=== PATIENT | male | born 1940 | race Caucasian/White ===

== ENCOUNTER → 2021-04-14 | Outpatient (CLI) | payer OTHER | END | disposition home or self-care (01) | LOC: SHCH 13:22 | PROVIDERS: ATTEND Internal Medicine | DX: R01.1 Cardiac murmur, unspecified (principal) | CPT/HCPCS: 93306; 93356 ==

== ENCOUNTER 2021-05-05 05:38 | Inpatient (IN) | payer OTHER ==
[2021-05-04 12:32] LABS: APPEARANCE,URINE Clear (CLEAR); BILIRUBIN,URINE Negative (NEGATIVE); GLUCOSE, URINE (UA) Negative (NEGATIVE); KETONES,URINE Trace mg/dL (NEGATIVE); LEUKOCYTE ESTERASE ,URINE Negative (NEGATIVE); NITRATE,URINE Negative (NEGATIVE); OCCULT BLOOD,URINE Negative (NEGATIVE); PROTEIN,URINE Negative (NEGATIVE)
[2021-05-04 12:38] LABS: COLOR,URINE YELLOW (YELLOW)
[2021-05-04 12:43] LABS: BASOPHILS % (AUTO) 0.9 % (0.0-5.0); EOSINOPHILS % (AUTO) 4.6 % (0.0-8.0); HEMATOCRIT 38.7 % (42-54); LYMPHOCYTES % (AUTO) 22.1 % (21.0-51.0); MEAN CORPUSCULAR HEMOGLOBIN 32.5 pg (27.0-33.0); MEAN CORPUSCULAR HGB CONC 35.9 g/dL (32.0-36.0); MEAN CORPUSCULAR VOLUME 90.4 fL (79-99); MONOCYTES % (AUTO) 9.4 % (3.0-13.0); NEUTROPHILS % (AUTO) 62.5 % (40.0-77.0); PLATELET COUNT (AUTO) 177 K/uL (130-400); RED BLOOD CELL COUNT(AUTO) 4.28 MIL/uL (4.50-6.20); RED CELL DISTRIBUTION WIDTH 11.9 % (11.0-15.5); WHITE BLOOD COUNT (AUTO) 8.2 K/uL (4.8-10.8)
[2021-05-04 12:52] LABS: CREATININE 1.2 mg/dL (0.5-1.5); POTASSIUM 4.3 mmol/L (3.5-5.1)
[2021-05-04 12:53] LABS: INR 1.03 (0.85-1.15); PROTHROMBIN TIME 11.2 SEC (9.6-11.6)
[2021-05-04 12:55] LABS: PARTIAL THROMBOPLASTIN TIME 27.6 SEC (26.3-35.5)
[2021-05-04 13:59] VITALS: BP 144/77
[~2021-05-05] VITALS: Ht 177.8 cm; Wt 80.4 kg
[2021-05-05] VITALS (13 sets, daily range): BP systolic 104–191; BP diastolic 53–86
[~2021-05-05 05:38] MED LIST: 0.9% NACL 500ML IV.SOLN 500 ML IV SCH; AEC81 PO; AMLO-257 PO; CALC-1125 PO; DUTA0.5C37 PO; GABA300C PO; LISI10TA24 PO; MAGN250T10 PO; OMEP20CA12 PO; OXYB15TA19 PO; TAMS-1 PO
[2021-05-05] MEDS ORDERED: 0.9%NACL 1000ML 1,000 ML IV ONE (07:03)
[2021-05-05] MEDS ORDERED: IOHEXOL-350 50ML VIAL IV ONE (07:18)
[2021-05-05] MEDS ORDERED: LIDOCAINE HCL 400MG/20ML VIAL ONE (07:18)
[2021-05-05] MEDS ORDERED: IOHEXOL 350 MG/ML 100ML INFUS..BTL IV ONE ×2 (07:18→12:29)
[2021-05-05] MEDS ORDERED: HEPARIN 10,000 UNIT/10ML (1,000 UNIT/ML) VIAL ONE (07:18)
[2021-05-05] MEDS ORDERED: HYDRALAZINE 20MG/ML VIAL ONE (07:47)
[2021-05-05 14:11] LABS: APPEARANCE,URINE Clear (CLEAR); BILIRUBIN,URINE Negative (NEGATIVE); COLOR,URINE Yellow (YELLOW); GLUCOSE, URINE (UA) Negative (NEGATIVE); KETONES,URINE Negative (NEGATIVE); LEUKOCYTE ESTERASE ,URINE Negative (NEGATIVE); NITRATE,URINE Negative (NEGATIVE); OCCULT BLOOD,URINE Negative (NEGATIVE); PROTEIN,URINE Negative (NEGATIVE)
[2021-05-05 14:18] LABS: BACTERIA,URINE Rare /HPF (None Seen); RBC,URINE 0-1 /HPF (0-1); SQUAMOUS EPITHELIAL CELL,UR Rare /HPF (0-2); WBC,URINE 0-1 /HPF (0-1)
[2021-05-05] MEDS ORDERED: ASPIRIN 81 MG EC TAB PO SCH (21:00)
[2021-05-06] MEDS ORDERED: OXYBUTYNIN CHLORIDE 15 MG PO SCH (09:00)
[2021-05-06] MEDS ORDERED: GABAPENTIN 300 MG CAPSULE PO SCH (09:00)
[2021-05-06] MEDS ORDERED: LISINOPRIL 10 MG TABLET PO SCH (09:00)
[2021-05-06] MEDS ORDERED: TAMSULOSIN HCL 0.4 MG CAP.ER.24H PO SCH (09:00)
[2021-05-06] MEDS ORDERED: PANTOPRAZOLE 40 MG TAB DR PO SCH (09:00)
[2021-05-06] MEDS ORDERED: AMLODIPINE 5 MG TAB PO SCH (09:00)
[2021-05-06] MEDS ORDERED: CALCIUM CARB 500MG PO SCH (09:00)
== END 2021-05-05 20:50 | disposition home or self-care (01) | DRG 287 ==
LOC: DAH 05:38 → DAHIP 05:39 → 3BH 17:38 → 4BH 17:48
PROVIDERS: ADMIT Thoracic Surgery (Cardiothoracic Vascular Surgery); ATTEND Thoracic Surgery (Cardiothoracic Vascular Surgery)
PROC: 4A023N7 Measurement of Cardiac Sampling and Pressure, Left Heart, Percutaneous Approach (ICD-10-PCS; principal; 2021-05-05)
PROC: B2111ZZ Fluoroscopy of Multiple Coronary Arteries using Low Osmolar Contrast (ICD-10-PCS; 2021-05-05)
PROC: B2151ZZ Fluoroscopy of Left Heart using Low Osmolar Contrast (ICD-10-PCS; 2021-05-05)
DX: I35.0 Nonrheumatic aortic (valve) stenosis (principal); I45.10 Unspecified right bundle-branch block; I10 Essential (primary) hypertension; I73.9 Peripheral vascular disease, unspecified; E87.5 Hyperkalemia; E78.5 Hyperlipidemia, unspecified; Z96.653 Presence of artificial knee joint, bilateral; Z82.49 Family history of ischemic heart disease and other diseases of the circulatory system
CPT/HCPCS: 36415; 71045; 74174; 80048; 81001; 81003; 85025; 85610; 85730; 93005; 93458; 93880; 94010; A4606; C1769; C1894; G0378; J0360; J1644; J3490; J7030; Q9967

== ENCOUNTER 2021-05-13 11:30 | Inpatient (IN) | payer OTHER ==
[~2021-05-13] VITALS: Ht 175.3 cm; Wt 79.8 kg
[~2021-05-13 11:30] MED LIST changes: -0.9% NACL 500ML IV.SOLN 500 ML IV SCH; -AMLO-257 PO; -GABA300C PO; -LISI10TA24 PO; -OXYB15TA19 PO; -TAMS-1 PO
[2021-05-13 11:33] LABS: BASOPHILS % (AUTO) 0.9 % (0.0-5.0); EOSINOPHILS % (AUTO) 4.5 % (0.0-8.0); HEMATOCRIT 37.4 % (42-54); LYMPHOCYTES % (AUTO) 19.9 % (21.0-51.0); MEAN CORPUSCULAR HEMOGLOBIN 33.4 pg (27.0-33.0); MEAN CORPUSCULAR HGB CONC 36.1 g/dL (32.0-36.0); MEAN CORPUSCULAR VOLUME 92.6 fL (79-99); MONOCYTES % (AUTO) 9.6 % (3.0-13.0); NEUTROPHILS % (AUTO) 64.6 % (40.0-77.0); PLATELET COUNT (AUTO) 184 K/uL (130-400); RED BLOOD CELL COUNT(AUTO) 4.04 MIL/uL (4.50-6.20); RED CELL DISTRIBUTION WIDTH 12.2 % (11.0-15.5); WHITE BLOOD COUNT (AUTO) 7.5 K/uL (4.8-10.8)
[2021-05-13 11:53] LABS: ALBUMIN 3.7 g/dL (3.5-5.0); BILIRUBIN,TOTAL 0.6 mg/dL (0.2-1.0); CREATININE 1.2 mg/dL (0.5-1.5)
[2021-05-13 11:59] LABS: INR 1.01 (0.85-1.15)
[2021-05-13 12:01] LABS: PARTIAL THROMBOPLASTIN TIME 26.7 SEC (26.3-35.5)
[2021-05-13] MEDS: CEFAZOLIN SODIUM 1 GM VIAL IVP SCH (13:00)
[2021-05-13 14:45] VITALS: BP 144/68
[2021-05-13] MEDS ORDERED: TAMS-1 PO (15:07)
[2021-05-13] MEDS ORDERED: GABA300C PO (15:07)
[2021-05-13] MEDS ORDERED: OXYB15TA19 PO (15:07)
[2021-05-13] MEDS ORDERED: LISI10TA24 PO (15:07)
[2021-05-13] MEDS ORDERED: AMLO-257 PO (15:08)
[2021-05-16] VITALS (24 sets, daily range): BP systolic 96–185; BP diastolic 38–82
[2021-05-16] MEDS ORDERED: NOREPINEPHRINE BITARTRATE 8 MG in DEXTROSE 5%-WATER 250 ML IV PRN (06:30)
[2021-05-16] MEDS ORDERED: AMINOCAPROIC ACID 5,000MG VIAL 15,000 MG in 0.9% NACL 500ML IV.SOLN 420 ML IV PRN (06:30)
[2021-05-16] MEDS ORDERED: EPINEPHRINE PF 1MG AMP 10 MG in 0.9% NACL 250ML 240 ML IV PRN (06:30)
[2021-05-16] MEDS ORDERED: 0.9%NACL 1000ML 1,000 ML IV ONE (06:44)
[2021-05-16] MEDS ORDERED: ESMOLOL HCL 10 MG/ML 10 ML VIAL ONE (07:28)
[2021-05-16] MEDS ORDERED: PROTAMINE SULFATE 10 MG/ML 25ML VIAL IV ONE ×2 (07:28→12:23)
[2021-05-16] MEDS ORDERED: EPINEPHRINE PF 1MG AMP ONE (07:28)
[2021-05-16] MEDS ORDERED: SODIUM BICARB 50MEQ 50ML VIAL 150 ML ONE (07:28)
[2021-05-16] MEDS ORDERED: HEPARIN 10,000 UNIT/10ML (1,000 UNIT/ML) VIAL ONE ×2 (07:28→09:06)
[2021-05-16] MEDS ORDERED: LIDOCAINE PF 100MG/5ML (2%) SYRINGE 5ML ONE ×3 (07:28→12:23)
[2021-05-16] MEDS ORDERED: AMINOCAPROIC ACID 5,000MG VIAL ONE (07:29)
[2021-05-16] MEDS ORDERED: CEFAZOLIN SODIUM 1 GM VIAL ONE ×2 (07:29→12:32)
[2021-05-16] MEDS ORDERED: 0.9%NACL 10ML VIAL ONE (07:29)
[2021-05-16] MEDS ORDERED: MIDAZOLAM HCL 1 MG/ML 2ML VIAL ONE (07:29)
[2021-05-16] MEDS ORDERED: ROCURONIUM 10MG/1ML SYR 10 MG/ML ML ONE ×2 (07:29→10:03)
[2021-05-16] MEDS ORDERED: NOREPINEPHRINE BITARTRATE 1 MG/1 ML ML IV ONE (07:29)
[2021-05-16] MEDS ORDERED: PROPOFOL 10 MG/ML 20ML VIAL IV ONE (07:29)
[2021-05-16] MEDS ORDERED: FENTANYL CITRATE PF 50 MCG/1 ML 20ML VIAL IJ ONE (07:29)
[2021-05-16] MEDS ORDERED: ETOMIDATE 20MG VIAL ONE (07:30)
[2021-05-16] MEDS ORDERED: SUCCINYLCHOLINE CHLORIDE 20 MG/ML 10 ML VIAL ONE (07:30)
[2021-05-16] MEDS ORDERED: VASOPRESSIN 20 UNITS/ML 1ML VIAL ONE (07:32)
[2021-05-16] MEDS ORDERED: NITROGLYCERIN 50MG/D5W 250ML 1 BOT ONE (07:48)
[2021-05-16] MEDS ORDERED: AMIODARONE 150MG VIAL ONE (08:51)
[2021-05-16] MEDS: CEFAZOLIN SODIUM 1 GM VIAL IVP SCH ×2 (09:00→13:00)
[2021-05-16] MEDS ORDERED: DELNIDO FORMULA 1 BAG IV ONE (09:06)
[2021-05-16 09:15] LABS: ABG BASE EXCESS -2.9 mmol/L (-2.0-3.0); ABG HCO3 22.4 mmol/L (21.0-28.0); ABG PCO2 41 mmHg (35-48)
[2021-05-16] MEDS ORDERED: GLUCAGON 1MG KIT 1 MG ML IM PRN (09:30)
[2021-05-16] MEDS ORDERED: 0.9%NACL 1000ML 1,000 ML IV SCH (09:30)
[2021-05-16] MEDS ORDERED: POTASSIUM PHOS 15 mMOL+NS250ML 250 ML IV PRN (09:30)
[2021-05-16] MEDS ORDERED: INSULIN REGULAR, HUMAN 3ML 100 UNIT in 0.9%NACL 100ML 99 ML IV SCH ×2 (09:30)
[2021-05-16] MEDS ORDERED: ACETAMINOPHEN 650 MG SUPPOSITORY RC PRN (09:30)
[2021-05-16] MEDS ORDERED: PROPOFOL 1000 MG/100 ML 100 ML IV PRN (09:30)
[2021-05-16] MEDS ORDERED: TRAMADOL HCL 50 MG TABLET PO PRN (09:30)
[2021-05-16] MEDS ORDERED: NITROGLYCERIN 50MG/D5W 250ML 250 BOT IV SCH (09:30)
[2021-05-16] MEDS ORDERED: CALCIUM GLUC 1GM VIAL 1 GM in 0.9%NACL 50ML 50 ML IV PRN (09:30)
[2021-05-16] MEDS ORDERED: MAGNESIUM 2GM PREMIX 50ML 50 ML IV PRN (09:30)
[2021-05-16] MEDS ORDERED: AMINOCAPROIC ACID 5,000MG VIAL 15,000 MG in 0.9% NACL 250ML 250 ML IV SCH (09:30)
[2021-05-16] MEDS ORDERED: SODIUM BICARB 50MEQ 50ML VIAL IV PRN (09:30)
[2021-05-16] MEDS ORDERED: 0.9% NACL 500ML IV.SOLN 500 ML IV SCH (09:30)
[2021-05-16] MEDS ORDERED: 0.9%NACL 10ML VIAL IVP PRN (09:30)
[2021-05-16] MEDS ORDERED: NOREPINEPHRINE 4MG/NS 250ML 250 ML IV PRN (09:30)
[2021-05-16] MEDS ORDERED: DEXTROSE 50%-WATER 50 ML DISP.SYRIN IV PRN (09:30)
[2021-05-16] MEDS ORDERED: EPINEPHRINE PF 1MG AMP 10 MG in DEXTROSE 5%-WATER 250 ML IV PRN (09:30)
[2021-05-16 10:47] LABS: ABG BASE EXCESS -4.8 mmol/L (-2.0-3.0); ABG HCO3 21.3 mmol/L (21.0-28.0); ABG OXYGEN SATURATION 98.3 % (95.0-99.0); ABG PCO2 44 mmHg (35-48)
[2021-05-16 11:23] LABS: ABG BASE EXCESS -5.2 mmol/L (-2.0-3.0); ABG HCO3 21.1 mmol/L (21.0-28.0); ABG OXYGEN SATURATION 98.4 % (95.0-99.0); ABG PCO2 44 mmHg (35-48)
[2021-05-16] MEDS ORDERED: ALBUTEROL INHALER 90MCG/INH IH ONE (11:45)
[2021-05-16 12:03] LABS: ABG BASE EXCESS -6.4 mmol/L (-2.0-3.0); ABG HCO3 18.6 mmol/L (21.0-28.0); ABG OXYGEN SATURATION 98.3 % (95.0-99.0); ABG PCO2 35 mmHg (35-48)
[2021-05-16] MEDS ORDERED: SODIUM BICARB 50MEQ 50ML VIAL 200 ML ONE (12:08)
[2021-05-16] MEDS ORDERED: PHENYLEPHRINE HCL 10 MG/ML 1ML VIAL IV ONE (12:37)
[2021-05-16] MEDS ORDERED: AMINOCAPROIC ACID 5,000MG VIAL IV ONE (12:37)
[2021-05-16] MEDS ORDERED: HEPARIN 10,000 UNIT/10ML (1,000 UNIT/ML) VIAL IV ONE (12:37)
[2021-05-16] MEDS ORDERED: SODIUM BICARB 8.4% 50ML SYRINGE IVP ONE (12:37)
[2021-05-16] MEDS ORDERED: MANNITOL 25% 50ML VIAL IV ONE (12:37)
[2021-05-16] MEDS ORDERED: ALBUMIN (HUMAN) 25% 50 ML IV ONE (12:37)
[2021-05-16] MEDS ORDERED: MAGNESIUM SULFATE 1 GM/2 ML VIAL IM ONE (12:37)
[2021-05-16 12:47] LABS: ABG BASE EXCESS 1.2 mmol/L (-2.0-3.0); ABG HCO3 26.3 mmol/L (21.0-28.0); ABG OXYGEN SATURATION 98.1 % (95.0-99.0); ABG PCO2 44 mmHg (35-48)
[2021-05-16] MEDS ORDERED: INSULIN HUMULIN R 100 UNIT/ML 3ML ONE (12:51)
[2021-05-16] MEDS ORDERED: FENTANYL CITRATE PF 50 MCG/1 ML 5ML AMP IV ONE (12:57)
[2021-05-16] MEDS ORDERED: CEFTRIAXONE 2GM VIAL ONE ×2 (14:23→16:55)
[2021-05-16 14:30] LABS: ABG BASE EXCESS 2.2 mmol/L (-2.0-3.0); ABG HCO3 26.4 mmol/L (21.0-28.0); ABG OXYGEN SATURATION 97.1 % (95.0-99.0); ABG PCO2 40 mmHg (35-48)
[2021-05-16 14:43] LABS: HEMATOCRIT 30.4 % (42-54); MEAN CORPUSCULAR HGB CONC 36.5 g/dL (32.0-36.0); MEAN CORPUSCULAR VOLUME 90.5 fL (79-99); RED BLOOD CELL COUNT(AUTO) 3.36 MIL/uL (4.50-6.20); RED CELL DISTRIBUTION WIDTH 12.1 % (11.0-15.5); WHITE BLOOD COUNT (AUTO) 16.9 K/uL (4.8-10.8)
[2021-05-16 14:51] LABS: INR 1.18 (0.85-1.15); PROTHROMBIN TIME 12.7 SEC (9.6-11.6)
[2021-05-16 14:52] LABS: PARTIAL THROMBOPLASTIN TIME 20.7 SEC (26.3-35.5)
[2021-05-16] MEDS: ALBUMIN (HUMAN) 5% 250 ML IV PRN ×2 (15:01→15:02)
[2021-05-16 15:07] LABS: CREATININE 1.3 mg/dL (0.5-1.5); MAGNESIUM 2.9 mg/dL (1.80-2.40); PHOSPHORUS 2.9 mg/dL (2.5-4.9); POTASSIUM 3.8 mmol/L (3.5-5.1)
[2021-05-16] MEDS: MORPHINE 4 MG SYG IV PRN ×3 (15:22→22:29)
[2021-05-16] MEDS: POTASSIUM CHLORIDE 20MEQ/100ML 100 ML IV PRN ×3 (15:22→20:05)
[2021-05-16] MEDS: **HM** DUTASTERIDE 0.5MG PO SCH (15:30)
[2021-05-16 16:20] LABS: ABG BASE EXCESS 2.8 mmol/L (-2.0-3.0); ABG HCO3 26.7 mmol/L (21.0-28.0); ABG OXYGEN SATURATION 98.3 % (95.0-99.0); ABG PCO2 38 mmHg (35-48)
[2021-05-16] MEDS ORDERED: ALBUMIN (HUMAN) 5% 250 ML IV ONE (17:12)
[2021-05-16 18:33] LABS: ABG BASE EXCESS 1.9 mmol/L (-2.0-3.0); ABG HCO3 26.4 mmol/L (21.0-28.0); ABG OXYGEN SATURATION 96.5 % (95.0-99.0); ABG PCO2 41 mmHg (35-48)
[2021-05-16] MEDS ORDERED: ALBUMIN 5% IV ONE (18:53)
[2021-05-16 19:39] LABS: ABG BASE EXCESS 1.3 mmol/L (-2.0-3.0); ABG HCO3 24.9 mmol/L (21.0-28.0); ABG OXYGEN SATURATION 92.1 % (95.0-99.0); ABG PCO2 36 mmHg (35-48)
[2021-05-16] MEDS: ONDANSETRON 4MG INJ IV PRN (19:57)
[2021-05-16] MEDS: ATORVASTATIN 20 MG TABLET PO SCH (20:04)
[2021-05-16] MEDS: FAMOTIDINE 20MG VIAL IV SCH (20:04)
[2021-05-16] MEDS: TAMSULOSIN HCL 0.4 MG CAP.ER.24H PO SCH (20:05)
[2021-05-16] MEDS: MORPHINE 2 MG SYG IV PRN (20:26)
[2021-05-16] MEDS: CEFAZOLIN SODIUM 1 GM VIAL IV SCH (21:07)
[2021-05-16 21:25] LABS: ABG BASE EXCESS 3.7 mmol/L (-2.0-3.0); ABG HCO3 26.9 mmol/L (21.0-28.0); ABG OXYGEN SATURATION 95.3 % (95.0-99.0); ABG PCO2 35 mmHg (35-48)
[2021-05-16] MEDS: OXYBUTYNIN 5 MG TAB.SR.24H PO SCH (21:52)
[2021-05-17] VITALS (27 sets, daily range): BP systolic 112–194; BP diastolic 42–78
[2021-05-17] MEDS: MORPHINE 4 MG SYG IV PRN (02:11)
[2021-05-17 03:38] LABS: MEAN CORPUSCULAR HGB CONC 34.8 g/dL (32.0-36.0); MEAN CORPUSCULAR VOLUME 94.7 fL (79-99); RED BLOOD CELL COUNT(AUTO) 2.85 MIL/uL (4.50-6.20); RED CELL DISTRIBUTION WIDTH 12.5 % (11.0-15.5); WHITE BLOOD COUNT (AUTO) 8.9 K/uL (4.8-10.8)
[2021-05-17 03:52] LABS: INR 1.19 (0.85-1.15); PROTHROMBIN TIME 12.8 SEC (9.6-11.6)
[2021-05-17 03:54] LABS: PARTIAL THROMBOPLASTIN TIME 32.5 SEC (26.3-35.5)
[2021-05-17 04:16] LABS: CREATININE 1.4 mg/dL (0.5-1.5); MAGNESIUM 2.2 mg/dL (1.80-2.40); POTASSIUM 4.7 mmol/L (3.5-5.1)
[2021-05-17 05:13] LABS: ABG BASE EXCESS 2.4 mmol/L (-2.0-3.0); ABG HCO3 25.9 mmol/L (21.0-28.0); ABG OXYGEN SATURATION 92.4 % (95.0-99.0); ABG PCO2 36 mmHg (35-48)
[2021-05-17] MEDS: MORPHINE 2 MG SYG IV PRN (05:48)
[2021-05-17] MEDS: CEFAZOLIN SODIUM 1 GM VIAL IV SCH (05:48)
[2021-05-17] MEDS: FAMOTIDINE 20MG VIAL IV SCH (08:10)
[2021-05-17] MEDS: ASPIRIN 81 MG EC TAB PO SCH (08:10)
[2021-05-17] MEDS: **HM** DUTASTERIDE 0.5MG PO SCH (09:00)
[2021-05-17] MEDS: ACETAMINOPHEN 325 MG TAB PO PRN (09:20)
[2021-05-17 09:30] LABS: ABG HCO3 25.3 mmol/L (21.0-28.0); ABG OXYGEN SATURATION 89.6 % (95.0-99.0); ABG PCO2 35 mmHg (35-48)
[2021-05-17 11:49] LABS: ABG BASE EXCESS 1.3 mmol/L (-2.0-3.0); ABG HCO3 25.5 mmol/L (21.0-28.0); ABG OXYGEN SATURATION 87.1 % (95.0-99.0); ABG PCO2 39 mmHg (35-48)
[2021-05-17] MEDS: ONDANSETRON 4MG INJ IV PRN (12:12)
[2021-05-17] MEDS: TRAMADOL HCL 50 MG TABLET PO PRN ×3 (13:21→21:24)
[2021-05-17] MEDS ORDERED: FUROSEMIDE 20 MG TABLET PO SCH ×2 (16:30→21:00)
[2021-05-17] MEDS: ATORVASTATIN 20 MG TABLET PO SCH (20:19)
[2021-05-17] MEDS: TAMSULOSIN HCL 0.4 MG CAP.ER.24H PO SCH (20:19)
[2021-05-17] MEDS: OXYBUTYNIN 5 MG TAB.SR.24H PO SCH (23:10)
[2021-05-18] VITALS (25 sets, daily range): BP systolic 95–189; BP diastolic 51–102
[2021-05-18] MEDS: TRAMADOL HCL 50 MG TABLET PO PRN ×3 (03:12→14:22)
[2021-05-18 04:19] LABS: HEMATOCRIT 30.1 % (42-54); MEAN CORPUSCULAR HEMOGLOBIN 32.8 pg (27.0-33.0); MEAN CORPUSCULAR HGB CONC 34.2 g/dL (32.0-36.0); MEAN CORPUSCULAR VOLUME 95.9 fL (79-99); PLATELET COUNT (AUTO) 68 K/uL (130-400); RED BLOOD CELL COUNT(AUTO) 3.14 MIL/uL (4.50-6.20); RED CELL DISTRIBUTION WIDTH 12.5 % (11.0-15.5); WHITE BLOOD COUNT (AUTO) 13.4 K/uL (4.8-10.8)
[2021-05-18 04:33] LABS: ABG BASE EXCESS 2.8 mmol/L (-2.0-3.0); ABG HCO3 25.7 mmol/L (21.0-28.0); ABG OXYGEN SATURATION 98.5 % (95.0-99.0); ABG PCO2 34 mmHg (35-48)
[2021-05-18 04:41] LABS: CREATININE 1.3 mg/dL (0.5-1.5); POTASSIUM 3.9 mmol/L (3.5-5.1)
[2021-05-18] MEDS ORDERED: ZOSYN 3.375GM+NS 50ML 3.38 GM in 0.9%NACL 50ML 50 ML IV SCH (08:00)
[2021-05-18] MEDS: ASPIRIN 81 MG EC TAB PO SCH (08:11)
[2021-05-18] MEDS ORDERED: ZOSYN 3.375GM+NS 50ML 50 ML IV SCH (08:30)
[2021-05-18] MEDS: **HM** DUTASTERIDE 0.5MG PO SCH (09:00)
[2021-05-18] MEDS: LISINOPRIL 10 MG TABLET PO SCH (09:03)
[2021-05-18] MEDS: FUROSEMIDE 40MG VIAL IV SCH ×2 (09:03→20:26)
[2021-05-18] MEDS: POTASSIUM CHLORIDE 20MEQ/100ML 100 ML IV PRN ×2 (09:24→19:03)
[2021-05-18] MEDS: ZOSYN 3.375GM+NS 50ML 50 ML IV SCH ×2 (13:30→20:27)
[2021-05-18 15:56] LABS: CREATININE 1.4 mg/dL (0.5-1.5)
[2021-05-18] MEDS: INSULIN HUMULIN R 100 UNIT/ML 3ML SQ SCH ×2 (16:30→20:34)
[2021-05-18] MEDS: TAMSULOSIN HCL 0.4 MG CAP.ER.24H PO SCH (20:33)
[2021-05-18] MEDS: OXYBUTYNIN 5 MG TAB.SR.24H PO SCH (20:33)
[2021-05-19] VITALS (18 sets, daily range): BP systolic 99–144; BP diastolic 45–93
[2021-05-19] MEDS: TRAMADOL HCL 50 MG TABLET PO PRN (00:49)
[2021-05-19 04:23] LABS: HEMATOCRIT 30.1 % (42-54); MEAN CORPUSCULAR HEMOGLOBIN 33.6 pg (27.0-33.0); MEAN CORPUSCULAR HGB CONC 34.2 g/dL (32.0-36.0); RED BLOOD CELL COUNT(AUTO) 3.07 MIL/uL (4.50-6.20); RED CELL DISTRIBUTION WIDTH 12.4 % (11.0-15.5); WHITE BLOOD COUNT (AUTO) 17.5 K/uL (4.8-10.8)
[2021-05-19 04:38] LABS: CREATININE 1.5 mg/dL (0.5-1.5); POTASSIUM 3.8 mmol/L (3.5-5.1)
[2021-05-19] MEDS: INSULIN HUMULIN R 100 UNIT/ML 3ML SQ SCH ×4 (05:22→21:00)
[2021-05-19] MEDS: ZOSYN 3.375GM+NS 50ML 50 ML IV SCH ×3 (05:22→21:18)
[2021-05-19] MEDS ORDERED: POTASSIUM CHLORIDE 10% ELIXIR 20 MEQ/15 ML UDCUP ONE (06:28)
[2021-05-19] MEDS: LISINOPRIL 10 MG TABLET PO SCH (08:09)
[2021-05-19] MEDS: FUROSEMIDE 40MG VIAL IV SCH ×2 (08:10→21:17)
[2021-05-19] MEDS: ASPIRIN 81 MG EC TAB PO SCH (08:10)
[2021-05-19] MEDS: **HM** DUTASTERIDE 0.5MG PO SCH (08:11)
[2021-05-19] MEDS: POTASSIUM CHLORIDE 10% ELIXIR 20 MEQ/15 ML UDCUP PO PRN (08:11)
[2021-05-19] MEDS ORDERED: 0.9% NACL 250ML 250 ML IV SCH ×2 (10:00→12:00)
[2021-05-19] MEDS ORDERED: VANCOMYCIN KIT 1 GM/250 ML IV.KIT IV SCH (10:00)
[2021-05-19] MEDS ORDERED: IPRATROPIUM/ALBUTEROL SULFATE 3 ML SOLUTION IH ONE (10:45)
[2021-05-19] MEDS: IPRATROPIUM/ALBUTEROL SULFATE 3 ML SOLUTION IH SCH ×3 (10:54→23:25)
[2021-05-19] MEDS: OXYBUTYNIN 5 MG TAB.SR.24H PO SCH (21:18)
[2021-05-19] MEDS: TAMSULOSIN HCL 0.4 MG CAP.ER.24H PO SCH (21:19)
[2021-05-19] MEDS: ACETAMINOPHEN 325 MG TAB PO PRN (21:21)
[2021-05-20] VITALS (23 sets, daily range): BP systolic 110–161; BP diastolic 50–91
[2021-05-20] MEDS: ACETAMINOPHEN 325 MG TAB PO PRN (01:57)
[2021-05-20 03:40] LABS: BASOPHILS % (AUTO) 0.4 % (0.0-5.0); EOSINOPHILS % (AUTO) 0.4 % (0.0-8.0); HEMATOCRIT 28.6 % (42-54); LYMPHOCYTES % (AUTO) 6.9 % (21.0-51.0); MEAN CORPUSCULAR HEMOGLOBIN 32.6 pg (27.0-33.0); MEAN CORPUSCULAR VOLUME 93.2 fL (79-99); MONOCYTES % (AUTO) 7.8 % (3.0-13.0); PLATELET COUNT (AUTO) 92 K/uL (130-400); RED BLOOD CELL COUNT(AUTO) 3.07 MIL/uL (4.50-6.20); RED CELL DISTRIBUTION WIDTH 12.2 % (11.0-15.5); WHITE BLOOD COUNT (AUTO) 12.8 K/uL (4.8-10.8)
[2021-05-20 03:56] LABS: ALBUMIN 2.9 g/dL (3.5-5.0); BILIRUBIN,TOTAL 1.5 mg/dL (0.2-1.0); CREATININE 1.5 mg/dL (0.5-1.5); POTASSIUM 3.6 mmol/L (3.5-5.1)
[2021-05-20 04:06] LABS: INR 1.21 (0.85-1.15)
[2021-05-20 04:07] LABS: PARTIAL THROMBOPLASTIN TIME 25.6 SEC (26.3-35.5)
[2021-05-20] MEDS: ZOSYN 3.375GM+NS 50ML 50 ML IV SCH ×3 (05:10→21:21)
[2021-05-20] MEDS: POTASSIUM CHLORIDE 20MEQ/100ML 100 ML IV PRN (05:51)
[2021-05-20] MEDS: IPRATROPIUM/ALBUTEROL SULFATE 3 ML SOLUTION IH SCH ×4 (06:48→23:34)
[2021-05-20] MEDS: INSULIN HUMULIN R 100 UNIT/ML 3ML SQ SCH ×4 (07:13→21:00)
[2021-05-20] MEDS ORDERED: VANCOMYCIN 1G VIAL IVPB ONE (08:00)
[2021-05-20] MEDS ORDERED: FUROSEMIDE 20 MG TABLET PO SCH (08:00)
[2021-05-20] MEDS: ASPIRIN 81 MG EC TAB PO SCH (08:22)
[2021-05-20] MEDS: LISINOPRIL 10 MG TABLET PO SCH (08:22)
[2021-05-20] MEDS ORDERED: 0.9% NACL 250ML 250 ML ONE (08:25)
[2021-05-20] MEDS: VANCOMYCIN 500MG+NS 100ML IVPB IV SCH ×2 (08:26→21:20)
[2021-05-20] MEDS: FUROSEMIDE 20 MG TABLET PO SCH ×2 (08:26→21:21)
[2021-05-20] MEDS: 0.9%NACL 100ML 100 ML IV SCH ×3 (08:27→21:20)
[2021-05-20] MEDS: **HM** DUTASTERIDE 0.5MG PO SCH (09:00)
[2021-05-20] MEDS ORDERED: VANCOMYCIN 500MG VIAL IVPB SCH (09:00)
[2021-05-20] MEDS ORDERED: 0.9%NACL 50ML 50 ML IV ONE (12:53)
[2021-05-20] MEDS: TRAMADOL HCL 50 MG TABLET PO PRN (12:55)
[2021-05-20] MEDS: TAMSULOSIN HCL 0.4 MG CAP.ER.24H PO SCH (21:22)
[2021-05-20] MEDS: OXYBUTYNIN 5 MG TAB.SR.24H PO SCH (21:28)
[2021-05-21] VITALS (24 sets, daily range): BP systolic 106–179; BP diastolic 57–99
[2021-05-21] MEDS: ZOSYN 3.375GM+NS 50ML 50 ML IV SCH ×3 (05:03→20:13)
[2021-05-21 05:32] LABS: BASOPHILS % (AUTO) 0.5 % (0.0-5.0); EOSINOPHILS % (AUTO) 2.1 % (0.0-8.0); HEMATOCRIT 30.8 % (42-54); LYMPHOCYTES % (AUTO) 8.7 % (21.0-51.0); MEAN CORPUSCULAR HEMOGLOBIN 32.6 pg (27.0-33.0); MEAN CORPUSCULAR HGB CONC 33.8 g/dL (32.0-36.0); MEAN CORPUSCULAR VOLUME 96.6 fL (79-99); MONOCYTES % (AUTO) 9.4 % (3.0-13.0); NEUTROPHILS % (AUTO) 78.8 % (40.0-77.0); PLATELET COUNT (AUTO) 107 K/uL (130-400); RED BLOOD CELL COUNT(AUTO) 3.19 MIL/uL (4.50-6.20); RED CELL DISTRIBUTION WIDTH 12.4 % (11.0-15.5); WHITE BLOOD COUNT (AUTO) 9.8 K/uL (4.8-10.8)
[2021-05-21] MEDS: INSULIN HUMULIN R 100 UNIT/ML 3ML SQ SCH ×4 (05:32→20:17)
[2021-05-21 05:52] LABS: ALBUMIN 2.7 g/dL (3.5-5.0); BILIRUBIN,TOTAL 1.2 mg/dL (0.2-1.0); CREATININE 1.3 mg/dL (0.5-1.5); MAGNESIUM 2.3 mg/dL (1.80-2.40); POTASSIUM 4.4 mmol/L (3.5-5.1)
[2021-05-21] MEDS: IPRATROPIUM/ALBUTEROL SULFATE 3 ML SOLUTION IH SCH ×3 (06:00→18:20)
[2021-05-21] MEDS ORDERED: RENAL DOSE IV SCH (07:30)
[2021-05-21] MEDS: ASPIRIN 81 MG EC TAB PO SCH (08:13)
[2021-05-21] MEDS: FUROSEMIDE 20 MG TABLET PO SCH ×2 (08:13→20:10)
[2021-05-21] MEDS: LISINOPRIL 10 MG TABLET PO SCH (08:14)
[2021-05-21] MEDS: TRAMADOL HCL 50 MG TABLET PO PRN (08:15)
[2021-05-21] MEDS: 0.9%NACL 100ML 100 ML IV SCH ×2 (08:18→17:28)
[2021-05-21] MEDS: **HM** DUTASTERIDE 0.5MG PO SCH (08:18)
[2021-05-21] MEDS: VANCOMYCIN 500MG+NS 100ML IVPB IV SCH ×2 (08:18→17:28)
[2021-05-21] MEDS ORDERED: 0.9% NACL 250ML 250 ML IV SCH (12:00)
[2021-05-21] MEDS ORDERED: VANCOMYCIN 750MG VIAL IVPB SCH (12:00)
[2021-05-21] MEDS: AMLODIPINE 2.5 MG TAB PO SCH (12:53)
[2021-05-21] MEDS ORDERED: TRAMADOL HCL 50 MG TABLET ONE (13:38)
[2021-05-21] MEDS: TRAMADOL HCL 50 MG TABLET PO SCH ×2 (14:33→20:12)
[2021-05-21] MEDS ORDERED: 0.9%NACL 50ML 50 ML IV ONE (20:00)
[2021-05-21] MEDS: TAMSULOSIN HCL 0.4 MG CAP.ER.24H PO SCH (20:09)
[2021-05-21] MEDS: OXYBUTYNIN 5 MG TAB.SR.24H PO SCH (20:09)
[2021-05-22] VITALS (20 sets, daily range): BP systolic 114–150; BP diastolic 59–79
[2021-05-22] MEDS: IPRATROPIUM/ALBUTEROL SULFATE 3 ML SOLUTION IH SCH ×5 (00:21→23:03)
[2021-05-22] MEDS: TRAMADOL HCL 50 MG TABLET PO SCH ×2 (02:03→08:00)
[2021-05-22 03:53] LABS: BASOPHILS % (AUTO) 0.6 % (0.0-5.0); EOSINOPHILS % (AUTO) 4.3 % (0.0-8.0); HEMATOCRIT 29.5 % (42-54); LYMPHOCYTES % (AUTO) 10.6 % (21.0-51.0); MEAN CORPUSCULAR HEMOGLOBIN 32.7 pg (27.0-33.0); MEAN CORPUSCULAR HGB CONC 35.3 g/dL (32.0-36.0); MEAN CORPUSCULAR VOLUME 92.8 fL (79-99); MONOCYTES % (AUTO) 9.9 % (3.0-13.0); NEUTROPHILS % (AUTO) 74.1 % (40.0-77.0); PLATELET COUNT (AUTO) 114 K/uL (130-400); RED BLOOD CELL COUNT(AUTO) 3.18 MIL/uL (4.50-6.20); RED CELL DISTRIBUTION WIDTH 12.3 % (11.0-15.5)
[2021-05-22 04:02] LABS: ALBUMIN 2.4 g/dL (3.5-5.0); BILIRUBIN,TOTAL 0.9 mg/dL (0.2-1.0); CREATININE 1.1 mg/dL (0.5-1.5); MAGNESIUM 2.3 mg/dL (1.80-2.40); POTASSIUM 3.6 mmol/L (3.5-5.1); TOTAL PROTEIN, SERUM 5.8 g/dL (6.0-8.3)
[2021-05-22] MEDS ORDERED: 0.9%NACL 50ML 50 ML IV ONE ×2 (04:22→19:56)
[2021-05-22] MEDS: 0.9%NACL 100ML 100 ML IV SCH ×2 (05:14→18:08)
[2021-05-22] MEDS: VANCOMYCIN 500MG+NS 100ML IVPB IV SCH ×2 (05:14→18:08)
[2021-05-22] MEDS: ZOSYN 3.375GM+NS 50ML 50 ML IV SCH ×3 (05:45→21:13)
[2021-05-22] MEDS: INSULIN HUMULIN R 100 UNIT/ML 3ML SQ SCH ×4 (05:50→21:00)
[2021-05-22] MEDS: ASPIRIN 81 MG EC TAB PO SCH (08:45)
[2021-05-22] MEDS: AMLODIPINE 2.5 MG TAB PO SCH (08:45)
[2021-05-22] MEDS: LISINOPRIL 10 MG TABLET PO SCH (08:45)
[2021-05-22] MEDS: **HM** DUTASTERIDE 0.5MG PO SCH (08:46)
[2021-05-22] MEDS: FUROSEMIDE 20 MG TABLET PO SCH ×2 (08:46→21:13)
[2021-05-22] MEDS: POTASSIUM CHLORIDE 10% ELIXIR 20 MEQ/15 ML UDCUP PO PRN (08:46)
[2021-05-22] MEDS: TRAMADOL HCL 50 MG TABLET PO PRN ×2 (13:46→23:42)
[2021-05-22 21:03] LABS: ABG BASE EXCESS 1.6 mmol/L (-2.0-3.0); ABG HCO3 24.5 mmol/L (21.0-28.0); ABG OXYGEN SATURATION 95.3 % (95.0-99.0); ABG PCO2 34 mmHg (35-48)
[2021-05-22] MEDS: TAMSULOSIN HCL 0.4 MG CAP.ER.24H PO SCH (21:12)
[2021-05-22] MEDS: OXYBUTYNIN 5 MG TAB.SR.24H PO SCH (21:12)
[2021-05-22] MEDS: DEXTROSE 5 % AND 0.9 % NACL 1,000 ML IV SCH (21:16)
[2021-05-23] VITALS (18 sets, daily range): BP systolic 0–174; BP diastolic 57–101
[2021-05-23 03:53] LABS: BASOPHILS % (AUTO) 0.4 % (0.0-5.0); EOSINOPHILS % (AUTO) 2.8 % (0.0-8.0); HEMATOCRIT 29.9 % (42-54); MEAN CORPUSCULAR HGB CONC 35.1 g/dL (32.0-36.0); MONOCYTES % (AUTO) 9.6 % (3.0-13.0); NEUTROPHILS % (AUTO) 77.2 % (40.0-77.0); PLATELET COUNT (AUTO) 122 K/uL (130-400); RED BLOOD CELL COUNT(AUTO) 3.18 MIL/uL (4.50-6.20); RED CELL DISTRIBUTION WIDTH 12.4 % (11.0-15.5); WHITE BLOOD COUNT (AUTO) 11.3 K/uL (4.8-10.8)
[2021-05-23 04:05] LABS: ALBUMIN 2.2 g/dL (3.5-5.0); BILIRUBIN,DIRECT 0.4 mg/dL (0.0-0.3); CREATININE 1.1 mg/dL (0.5-1.5); MAGNESIUM 2.3 mg/dL (1.80-2.40); PHOSPHORUS 3.7 mg/dL (2.5-4.9); TOTAL PROTEIN, SERUM 5.7 g/dL (6.0-8.3)
[2021-05-23 04:08] LABS: INR 1.14 (0.85-1.15); PROTHROMBIN TIME 12.3 SEC (9.6-11.6)
[2021-05-23 04:09] LABS: PARTIAL THROMBOPLASTIN TIME 27.1 SEC (26.3-35.5)
[2021-05-23] MEDS: ZOSYN 3.375GM+NS 50ML 50 ML IV SCH ×3 (05:53→20:36)
[2021-05-23] MEDS: 0.9% NACL 250ML 250 ML IV SCH ×2 (05:53→18:30)
[2021-05-23] MEDS: VANCOMYCIN 750MG VIAL IVPB SCH ×2 (05:53→18:29)
[2021-05-23] MEDS: INSULIN HUMULIN R 100 UNIT/ML 3ML SQ SCH ×4 (06:09→21:00)
[2021-05-23] MEDS: IPRATROPIUM/ALBUTEROL SULFATE 3 ML SOLUTION IH SCH ×4 (06:57→23:58)
[2021-05-23] MEDS: **HM** DUTASTERIDE 0.5MG PO SCH (09:00)
[2021-05-23] MEDS ORDERED: 0.9%NACL 1000ML 1,000 ML IV SCH (09:30)
[2021-05-23] MEDS: FUROSEMIDE 20 MG TABLET PO SCH ×2 (10:12→20:38)
[2021-05-23] MEDS ORDERED: BUPIVACAINE/PF 0.25% 30ML VIAL IJ ONE (11:00)
[2021-05-23] MEDS ORDERED: MIDAZOLAM HCL 1 MG/ML 2ML VIAL ONE ×2 (11:00→12:09)
[2021-05-23] MEDS ORDERED: MEPERIDINE-PF 25 MG/ML SYG ONE ×2 (11:00→12:08)
[2021-05-23] MEDS ORDERED: CEFAZOLIN SODIUM 1 GM VIAL ONE (11:00)
[2021-05-23] MEDS ORDERED: LIDOCAINE HCL 1% MDV 50ML VIAL ONE (11:00)
[2021-05-23 15:28] LABS: INR 1.16 (0.85-1.15); PROTHROMBIN TIME 12.5 SEC (9.6-11.6)
[2021-05-23 15:30] LABS: PARTIAL THROMBOPLASTIN TIME 27.7 SEC (26.3-35.5)
[2021-05-23] MEDS: ASPIRIN 81 MG EC TAB PO SCH (16:19)
[2021-05-23] MEDS: AMLODIPINE 2.5 MG TAB PO SCH (16:24)
[2021-05-23] MEDS: LISINOPRIL 10 MG TABLET PO SCH (16:25)
[2021-05-23] MEDS: TRAMADOL HCL 50 MG TABLET PO PRN (18:34)
[2021-05-23] MEDS ORDERED: 0.9%NACL 50ML 50 ML IV ONE (20:29)
[2021-05-23] MEDS: TAMSULOSIN HCL 0.4 MG CAP.ER.24H PO SCH (20:37)
[2021-05-23] MEDS: OXYBUTYNIN 5 MG TAB.SR.24H PO SCH (20:38)
[2021-05-23] MEDS: DEXTROSE 5 % AND 0.9 % NACL 1,000 ML IV SCH (21:14)
[2021-05-24] VITALS (10 sets, daily range): BP systolic 118–139; BP diastolic 59–80
[2021-05-24] MEDS: DEXTROSE 5 % AND 0.9 % NACL 1,000 ML IV SCH (04:14)
[2021-05-24] MEDS: ZOSYN 3.375GM+NS 50ML 50 ML IV SCH ×3 (04:15→21:53)
[2021-05-24] MEDS: IPRATROPIUM/ALBUTEROL SULFATE 3 ML SOLUTION IH SCH ×3 (07:12→18:52)
[2021-05-24] MEDS: INSULIN HUMULIN R 100 UNIT/ML 3ML SQ SCH ×4 (07:30→21:00)
[2021-05-24] MEDS: VANCOMYCIN 750MG VIAL IVPB SCH ×2 (07:34→17:19)
[2021-05-24] MEDS: 0.9% NACL 250ML 250 ML IV SCH ×2 (07:34→18:14)
[2021-05-24] MEDS: TRAMADOL HCL 50 MG TABLET PO PRN ×2 (08:21→17:15)
[2021-05-24] MEDS: LISINOPRIL 20 MG TABLET PO SCH (08:21)
[2021-05-24] MEDS: ASPIRIN 81 MG EC TAB PO SCH (08:22)
[2021-05-24] MEDS: FUROSEMIDE 20 MG TABLET PO SCH ×2 (08:22→21:54)
[2021-05-24] MEDS: METOPROLOL TARTRATE 50 MG TAB PO SCH ×2 (08:25→21:55)
[2021-05-24] MEDS: PANTOPRAZOLE 40 MG TAB DR PO SCH (08:25)
[2021-05-24] MEDS: **HM** DUTASTERIDE 0.5MG PO SCH (09:00)
[2021-05-24] MEDS ORDERED: ENOXAPARIN SODIUM 30 MG/0.3 ML SQ SCH (09:00)
[2021-05-24] MEDS: OXYBUTYNIN 5 MG TAB.SR.24H PO SCH (21:53)
[2021-05-24] MEDS: APIXABAN 5 MG TABLET PO SCH (21:54)
[2021-05-24] MEDS: TAMSULOSIN HCL 0.4 MG CAP.ER.24H PO SCH (21:54)
[2021-05-25] VITALS (14 sets, daily range): BP systolic 119–162; BP diastolic 48–67
[2021-05-25] MEDS: IPRATROPIUM/ALBUTEROL SULFATE 3 ML SOLUTION IH SCH ×4 (00:01→19:19)
[2021-05-25] MEDS: TRAMADOL HCL 50 MG TABLET PO PRN ×3 (04:10→17:38)
[2021-05-25] MEDS: ZOSYN 3.375GM+NS 50ML 50 ML IV SCH ×3 (05:52→20:18)
[2021-05-25] MEDS: VANCOMYCIN 750MG VIAL IVPB SCH ×2 (05:53→17:12)
[2021-05-25] MEDS: INSULIN HUMULIN R 100 UNIT/ML 3ML SQ SCH ×4 (07:30→20:25)
[2021-05-25] MEDS: 0.9% NACL 250ML 250 ML IV SCH ×2 (08:11→17:12)
[2021-05-25] MEDS: LISINOPRIL 20 MG TABLET PO SCH (08:51)
[2021-05-25] MEDS: FUROSEMIDE 20 MG TABLET PO SCH ×2 (08:52→20:19)
[2021-05-25] MEDS: APIXABAN 5 MG TABLET PO SCH ×2 (08:52→20:18)
[2021-05-25] MEDS: METOPROLOL TARTRATE 50 MG TAB PO SCH ×2 (08:52→20:18)
[2021-05-25] MEDS: PANTOPRAZOLE 40 MG TAB DR PO SCH (08:52)
[2021-05-25] MEDS: ASPIRIN 81 MG EC TAB PO SCH (08:53)
[2021-05-25] MEDS: **HM** DUTASTERIDE 0.5MG PO SCH (08:54)
[2021-05-25] MEDS ORDERED: ENOXAPARIN SODIUM 30 MG/0.3 ML SQ SCH (09:00)
[2021-05-25 09:30] LABS: HEMATOCRIT 27.5 % (42-54); MEAN CORPUSCULAR HEMOGLOBIN 32.8 pg (27.0-33.0); MEAN CORPUSCULAR HGB CONC 35.3 g/dL (32.0-36.0); MEAN CORPUSCULAR VOLUME 92.9 fL (79-99); PLATELET COUNT (AUTO) 132 K/uL (130-400); RED BLOOD CELL COUNT(AUTO) 2.96 MIL/uL (4.50-6.20); RED CELL DISTRIBUTION WIDTH 12.4 % (11.0-15.5)
[2021-05-25 09:41] LABS: CREATININE 1.1 mg/dL (0.5-1.5); POTASSIUM 3.3 mmol/L (3.5-5.1)
[2021-05-25 09:44] LABS: MAGNESIUM 2.1 mg/dL (1.80-2.40); PHOSPHORUS 2.9 mg/dL (2.5-4.9)
[2021-05-25 10:00] LABS: BASOPHILS % (MANUAL) 2 % (0-2); EOSINOPHILS % (MANUAL) 1 % (1-6); LYMPHOCYTES % (MANUAL) 10 % (22-44); MAN.DIFF COMMENT-IMPRESSION MANUAL DIFFERENTIAL; MONOCYTES % (MANUAL) 7 % (2-9); PLATELET MORPHOLOGY COMMENT ADEQUATE; SEGMENTED NEUTROPHILS % 80 % (40-70)
[2021-05-25] MEDS: DEXTROSE 5 % AND 0.9 % NACL 1,000 ML IV SCH (12:30)
[2021-05-25] MEDS: POTASSIUM CHLORIDE 10% ELIXIR 20 MEQ/15 ML UDCUP PO PRN ×3 (13:00→17:37)
[2021-05-25] MEDS: TAMSULOSIN HCL 0.4 MG CAP.ER.24H PO SCH (20:18)
[2021-05-25] MEDS: OXYBUTYNIN 5 MG TAB.SR.24H PO SCH (20:18)
[2021-05-26] MEDS: DEXTROSE 5 % AND 0.9 % NACL 1,000 ML IV SCH (00:08)
[2021-05-26] MEDS: IPRATROPIUM/ALBUTEROL SULFATE 3 ML SOLUTION IH SCH (01:01)
[2021-05-26 04:40] VITALS: BP 113/63
[2021-05-26] MEDS: ZOSYN 3.375GM+NS 50ML 50 ML IV SCH ×3 (05:08→20:42)
[2021-05-26] MEDS: POTASSIUM CHLORIDE 10% ELIXIR 20 MEQ/15 ML UDCUP PO PRN ×3 (05:36→11:07)
[2021-05-26] MEDS: PANTOPRAZOLE 40 MG TAB DR PO SCH (05:36)
[2021-05-26] MEDS: INSULIN HUMULIN R 100 UNIT/ML 3ML SQ SCH ×4 (07:30→20:43)
[2021-05-26 08:00] VITALS: BP 148/64
[2021-05-26] MEDS: METOPROLOL TARTRATE 50 MG TAB PO SCH ×2 (08:13→20:44)
[2021-05-26] MEDS: FUROSEMIDE 20 MG TABLET PO SCH ×2 (08:14→20:41)
[2021-05-26] MEDS: ASPIRIN 81 MG EC TAB PO SCH (08:14)
[2021-05-26] MEDS: LISINOPRIL 20 MG TABLET PO SCH (08:14)
[2021-05-26] MEDS: APIXABAN 5 MG TABLET PO SCH ×2 (08:14→20:41)
[2021-05-26] MEDS: **HM** DUTASTERIDE 0.5MG PO SCH (08:15)
[2021-05-26] MEDS: VANCOMYCIN 1G/250ML KIT 250 ML IV SCH ×2 (08:38→20:42)
[2021-05-26] MEDS ORDERED: SENNOSIDES 8.6 MG TABLET PO PRN (11:30)
[2021-05-26 11:49] VITALS: BP 153/62
[2021-05-26 16:00] VITALS: BP 129/57
[2021-05-26] MEDS: OXYBUTYNIN 5 MG TAB.SR.24H PO SCH (20:41)
[2021-05-26] MEDS: TAMSULOSIN HCL 0.4 MG CAP.ER.24H PO SCH (20:41)
[2021-05-26 20:42] VITALS: BP 148/63
[2021-05-27 04:19] VITALS: BP 158/62
[2021-05-27] MEDS: ZOSYN 3.375GM+NS 50ML 50 ML IV SCH (05:08)
[2021-05-27] MEDS: INSULIN HUMULIN R 100 UNIT/ML 3ML SQ SCH ×4 (06:35→20:42)
[2021-05-27 08:00] VITALS: BP 119/46
[2021-05-27 08:26] LABS: CREATININE 1.1 mg/dL (0.5-1.5); POTASSIUM 3.3 mmol/L (3.5-5.1)
[2021-05-27] MEDS: **HM** DUTASTERIDE 0.5MG PO SCH (09:00)
[2021-05-27] MEDS ORDERED: FUROSEMIDE 20 MG TABLET PO SCH (11:00)
[2021-05-27 11:09] LABS: HEMATOCRIT 28.8 % (42-54); MEAN CORPUSCULAR HEMOGLOBIN 32.4 pg (27.0-33.0); MEAN CORPUSCULAR HGB CONC 35.4 g/dL (32.0-36.0); MEAN CORPUSCULAR VOLUME 91.4 fL (79-99); PLATELET COUNT (AUTO) 262 K/uL (130-400); RED BLOOD CELL COUNT(AUTO) 3.15 MIL/uL (4.50-6.20); RED CELL DISTRIBUTION WIDTH 12.3 % (11.0-15.5); WHITE BLOOD COUNT (AUTO) 10.6 K/uL (4.8-10.8)
[2021-05-27] MEDS: PANTOPRAZOLE 40 MG TAB DR PO SCH (11:12)
[2021-05-27] MEDS: APIXABAN 5 MG TABLET PO SCH ×2 (11:12→20:43)
[2021-05-27] MEDS: POTASSIUM CHLORIDE 10% ELIXIR 20 MEQ/15 ML UDCUP PO PRN ×3 (11:13→16:55)
[2021-05-27] MEDS: METOPROLOL TARTRATE 50 MG TAB PO SCH ×2 (11:13→20:43)
[2021-05-27] MEDS: ASPIRIN 81 MG EC TAB PO SCH (11:13)
[2021-05-27] MEDS: LISINOPRIL 20 MG TABLET PO SCH (11:13)
[2021-05-27 11:57] VITALS: BP 122/38
[2021-05-27 12:01] LABS: EOSINOPHILS % (MANUAL) 4 % (1-6); LYMPHOCYTES % (MANUAL) 3 % (22-44); MAN.DIFF COMMENT-IMPRESSION MANUAL DIFFERENTIAL; MONOCYTES % (MANUAL) 7 % (2-9); PLATELET MORPHOLOGY COMMENT ADEQUATE; SEGMENTED NEUTROPHILS % 86 % (40-70)
[2021-05-27] MEDS: DEXTROSE 5 % AND 0.9 % NACL 1,000 ML IV SCH ×2 (14:01→23:43)
[2021-05-27] MEDS: CYCLOBENZAPRINE HCL 10 MG TABLET PO SCH ×2 (14:01→20:43)
[2021-05-27 16:00] VITALS: BP 132/60
[2021-05-27 20:13] VITALS: BP 144/62
[2021-05-27] MEDS: TAMSULOSIN HCL 0.4 MG CAP.ER.24H PO SCH (20:43)
[2021-05-27] MEDS: OXYBUTYNIN 5 MG TAB.SR.24H PO SCH (20:43)
[2021-05-27] MEDS: ACETAMINOPHEN 325 MG TAB PO PRN (23:38)
[2021-05-27 23:39] VITALS: BP 135/67
[2021-05-28 03:59] VITALS: BP 157/77
[2021-05-28] MEDS: INSULIN HUMULIN R 100 UNIT/ML 3ML SQ SCH ×3 (06:40→16:11)
[2021-05-28 07:45] VITALS: BP 150/69
[2021-05-28] MEDS: **HM** DUTASTERIDE 0.5MG PO SCH (09:00)
[2021-05-28] MEDS: CYCLOBENZAPRINE HCL 10 MG TABLET PO SCH (09:22)
[2021-05-28] MEDS: APIXABAN 5 MG TABLET PO SCH (09:23)
[2021-05-28] MEDS: PANTOPRAZOLE 40 MG TAB DR PO SCH (09:23)
[2021-05-28] MEDS: ASPIRIN 81 MG EC TAB PO SCH (09:23)
[2021-05-28] MEDS: LISINOPRIL 20 MG TABLET PO SCH (09:23)
[2021-05-28] MEDS: METOPROLOL TARTRATE 50 MG TAB PO SCH (09:23)
[2021-05-28 11:56] VITALS: BP 100/61
[2021-05-28 16:22] VITALS: BP 136/67
== END 2021-05-28 18:10 | DRG 219 ==
LOC: DAHIP 05-16 05:50 → EDSTATUS 05-16 11:30 → 2CH 05-16 13:35 → 2DH 05-18 17:20 → 4DH 05-26 03:40
PROVIDERS: ADMIT Thoracic Surgery (Cardiothoracic Vascular Surgery); ATTEND Thoracic Surgery (Cardiothoracic Vascular Surgery)
PROC: B24BZZ4 Ultrasonography of Heart with Aorta, Transesophageal (ICD-10-PCS; 2021-05-16)
PROC: X2RF032 Replacement of Aortic Valve using Zooplastic Tissue, Rapid Deployment Technique, Open Approach, New Technology Group 2 (ICD-10-PCS; principal; 2021-05-16 08:00)
PROC: 5A1221Z Performance of Cardiac Output, Continuous (ICD-10-PCS; 2021-05-16 08:00)
PROC: 5A09357 Assistance with Respiratory Ventilation, Less than 24 Consecutive Hours, Continuous Positive Airway Pressure (ICD-10-PCS; 2021-05-18)
PROC: 5A09357 Assistance with Respiratory Ventilation, Less than 24 Consecutive Hours, Continuous Positive Airway Pressure (ICD-10-PCS; 2021-05-19)
PROC: 5A09357 Assistance with Respiratory Ventilation, Less than 24 Consecutive Hours, Continuous Positive Airway Pressure (ICD-10-PCS; 2021-05-21)
PROC: 5A09357 Assistance with Respiratory Ventilation, Less than 24 Consecutive Hours, Continuous Positive Airway Pressure (ICD-10-PCS; 2021-05-22)
PROC: 0JH606Z Insertion of Pacemaker, Dual Chamber into Chest Subcutaneous Tissue and Fascia, Open Approach (ICD-10-PCS; 2021-05-23)
PROC: 02H63JZ Insertion of Pacemaker Lead into Right Atrium, Percutaneous Approach (ICD-10-PCS; 2021-05-23)
PROC: 02HK3JZ Insertion of Pacemaker Lead into Right Ventricle, Percutaneous Approach (ICD-10-PCS; 2021-05-23)
PROC: 5A09357 Assistance with Respiratory Ventilation, Less than 24 Consecutive Hours, Continuous Positive Airway Pressure (ICD-10-PCS; 2021-05-23)
DX: I35.0 Nonrheumatic aortic (valve) stenosis (principal); G92.9 Unspecified toxic encephalopathy; J95.1 Acute pulmonary insufficiency following thoracic surgery; J69.0 Pneumonitis due to inhalation of food and vomit; I44.2 Atrioventricular block, complete; J81.1 Chronic pulmonary edema; F05 Delirium due to known physiological condition; I48.20 Chronic atrial fibrillation, unspecified; J95.89 Other postprocedural complications and disorders of respiratory system, not elsewhere classified; I73.9 Peripheral vascular disease, unspecified; I10 Essential (primary) hypertension; N40.0 Benign prostatic hyperplasia without lower urinary tract symptoms; K21.9 Gastro-esophageal reflux disease without esophagitis; G62.9 Polyneuropathy, unspecified; D69.6 Thrombocytopenia, unspecified; K59.00 Constipation, unspecified; Z79.01 Long term (current) use of anticoagulants; Z79.82 Long term (current) use of aspirin; Z79.899 Other long term (current) drug therapy; Z87.01 Personal history of pneumonia (recurrent); Y83.8 Other surgical procedures as the cause of abnormal reaction of the patient, or of later complication, without mention of misadventure at the time of the procedure; Y82.8 Other medical devices associated with adverse incidents; Y92.89 Other specified places as the place of occurrence of the external cause; Z20.822 Contact with and (suspected) exposure to COVID-19
CPT/HCPCS: 33208; 36415; 71045; 71046; 80048; 80053; 80076; 80202; 82435; 82803; 82947; 82948; 83605; 83735; 84100; 84132; 84295; 85018; 85025; 85027; 85610; 85730; 86850; 86900; 86901; 86923; 87040; 87635; 88305; 88311; 92610; 93005; 93306; 93313; 93318; 93356; 94003; 94150; 94640; 94660; 94664; 94667; 94668; 97039; 99156; 99157; A4357; A7048; C1785; G0378; J0171; J0282; J0330; J0690; J0696; J1644; J1650; J1815; J1940; J2001; J2150; J2175; J2250; J2270; J2370; J2405; J2543; J2704; J2720; J3010; J3370; J3475; J3480; J3490; J7030; J7040; J7042; J7050; J7120; P9045; P9047

== ENCOUNTER → 2021-07-19 | Outpatient (CLI) | payer OTHER | END | disposition home or self-care (01) | LOC: SHCH 09:22 | PROVIDERS: ATTEND Internal Medicine Cardiovascular Disease | DX: I11.9 Hypertensive heart disease without heart failure (principal); I34.0 Nonrheumatic mitral (valve) insufficiency; Z95.2 Presence of prosthetic heart valve; Z95.0 Presence of cardiac pacemaker | CPT/HCPCS: 93306; 93356 ==